=== PATIENT | female | born 1970 | race African-American/Black ===

== ENCOUNTER 2016-10-11 11:19 | Inpatient (IN) ==
[2016-10-11] MEDS ORDERED: hydrALAZINE 20 MG/1 ML VIAL IV STA (12:09)
--- NOTE | 2016-10-11 12:18 | CT Report ---
CT brain Indication: Right upper extremity tremors Comparison: None available Technique: Axial CT imaging of the brain is performed without contrast with 3 mm increments. Findings: No evidence of hemorrhage, mass mass effect midline shift or acute infarct seen. The brain parenchyma attenuation and differentiation appears within normal limits. The ventricles and cisterns are normal in caliber. No cranial or skull base abnormality is identified. Impression: No evidence of abnormality demonstrated. This CT exam was performed using one or more the following dose reduction techniques: Automated exposure control, adjustment of the MA and/or KV according to patient size, or use of iterative reconstruction technique. PROCEDURE INTERPRETED AT [facility] DEPARTMENT OF RADIOLOGY Final Report Signed by: Dr. Zafar Echevarria
[2016-10-11] MEDS ORDERED: hydrALAZINE 20 MG/1 ML VIAL ONE (12:27)
[2016-10-11 12:31] LABS: Basophils % 0.4 % (0.0-0.8); Eosinophils # 0.1 10*3/uL (0.0-0.87); Eosinophils % 1.4 % (0.00-10.9); Hematocrit 43.6 VOL% (35.7-47.0); Hemoglobin 14.4 GM/DL (12.0-16.0); Immature Granulocytes % 0.3 %; Immature Granulocytes Absolute 0.03 #; Lymphocytes # 3.9 10*3/uL (1.4-4.0); Lymphocytes % 37.5 % (21.3-54.2); Mean Corpuscular Hemoglobin 28 PG (27-34); Mean Corpuscular Volume 84.5 FL (87-102); Mean Platelet Volume 11.4 FL (9.6-12.0); Monocytes # 0.5 10*3/uL (0.11-0.8); Neutrophils # 5.7 10*3/uL (1.4-7.4); Neutrophils % 55.4 % (38.7-73.9); Platelet Count 288 T/CUMM (130-400); Red Blood Count 5.16 MC/CUMM (3.8-5.5); Red Cell Distribution Width 14.3 % (9.3-17.3); White Blood Count 10.3 T/CUMM (4-12)
[2016-10-11 13:02] LABS: Troponin I Only < 0.015 NG/ML (0.00-0.045)
[2016-10-11 13:11] LABS: Alanine Aminotransferase 23 U/L (13-56); Albumin 3.6 G/DL (3.4-5.0); Alkaline Phosphatase 116 U/L (45-117); Aspartate Amino Transferase 15 U/L (0-37); Bilirubin,Total < 0.39 MG/DL (0.2-1.0); Blood Urea Nitrogen 7 MG/DL (7-18); Calcium 8.9 MG/DL (8.5-10.1); Glucose 145 MG/DL (74-106); Magnesium 2.1 MG/DL (1.8-2.4); Potassium 3.3 MMOL/L (3.5-5.1); Sodium 136 MMOL/L (136-145); Total Protein 7.6 G/DL (6.4-8.3)
--- NOTE | 2016-10-11 13:11 | XRay Report ---
XR chest 1V portable Indication: Hypertension Comparison: None Technique: Single frontal view of the chest. Findings: Heart size within normal limits. No focal consolidation, pleural effusion, or pneumothorax. Visualized osseous and surrounding soft tissue structures demonstrate no acute abnormality. IMPRESSION: No acute cardiopulmonary process demonstrated. PROCEDURE INTERPRETED AT [facility] DEPARTMENT OF RADIOLOGY Final Report Signed by: Dr Shaan Godinez
[2016-10-11] MEDS ORDERED: niCARdipine 25 MG/10 ML VIAL IV ONE (13:48)
[2016-10-11 13:51] LABS: Apearance,Urine CLOUDY (Clear); Bacteria,Urine Occasional /HPF (Few); Bilirubin,Urine Negative (Negative); Blood, Urine Negative (Negative); Glucose,Urine (UA) Negative (Negative); Hyaline Casts,Urine 2 /LPF (0-3); Ketones,Urine Negative (Negative); Mucus,Urine Occasional /LPF (Occasional); Nitrite,Urine Negative (Negative); Protein,Urine Negative; RBC,Urine <1 /HPF (0-4); Squamous Epithelial Cell,Urine Few /HPF (0-10); Urine Color Yellow (Yellow); Urine Specific Gravity 1.009 (1.001-1.035); Urine Urobilinogen < 2.0 EU/DL (0.2-1.0); WBC,Urine 20 /HPF (0-6)
[2016-10-11] MEDS ORDERED: cefTRIAXone 1,000 MG in SODIUM CHLORIDE 0.9% 100 ML IV STA (13:55)
[2016-10-11] MEDS ORDERED: niCARdipine INJ 25 MG in SODIUM CHLORIDE 0.9% 240 ML IV SCH (14:00)
[2016-10-11] MEDS ORDERED: cefTRIAXone 1,000 MG VIAL ONE (14:01)
--- NOTE | 2016-10-11 14:10 | Emergency Department Note ---
IFernando Emily, am scribing for, and in the presence of, Hero Villanueva MD 12: 35. Kay Rueda Charles R, MD, personally performed the services described in this documentation, ascribed by Emma King in my presence, and it is both accurate and complete 410 . Arrival - Arrival Chief Complaint: Non-Specific Stated Complaint: recent procedure. Stuttering, shaking, mouth water ED Nursing Triage Note: SENT FROM DR GLYNN'S OFFICE, HAVING STUTTERED SPEACH AFTER INJECTION IN HER BACK Mode of Arrival: Wheelchair Limitations: No Limitations Source: Patient Time Seen by Provider: 10/11/16 11:38 - History of Present Illness HPI Narrative: Pt is a 45 y/o female who came to ED from Dr. Glynn's office for further evaluation of allergic reaction after procedure earlier today. Pt had injection to back, then noticing her hands started itching then mild swelling. She came back from bathroom, per family, when stating her hands and travelled to her feet and was given Benadryl to help with sxs. After that medication, she began shaking and stuttering, reporting she "doesn't feel myself." Pt denies BROWN, numbness, double vision, nervousness, and anxiety. Family notes pt usually vomits a few times after every injection to her back and can drink a "soda" that helps to resolve the emesis. Onset (ago): hour(s) Consistency: constant Severity: mild Severity scale (1-10): 3 Quality: fullness Allergies/Adverse Reactions: Allergies Allergy/AdvReac Type Severity Reaction Status Date / Time No Known Allergies Allergy Verified 10/11/16 11:27 Home Medications: Home Medications Medication Instructions Recorded Confirmed Type Albuterol Inhaler [Proventil 2 puff INH Q4HR PRN 10/11/16 10/11/16 History Inhaler] Amoxicillin 500 mg PO Q8H 10/11/16 10/11/16 History Atorvastatin [Lipitor] 40 mg PO DAILY 10/11/16 10/11/16 History Carvedilol [Coreg] 25 mg PO BID 10/11/16 10/11/16 History Diclofenac 1% Gel [Voltaren 1% Gel] 1 applic TOP BID 10/11/16 10/11/16 History Ergocalciferol (Vitamin D2) 50,000 unit PO MO 10/11/16 10/11/16 History [Vitamin D2] Hydrocodone/Acetaminophen [[place] 1 each PO QID 10/11/16 10/11/16 History 10-325 Tablet] Ibuprofen Tab [Motrin Tab] 800 mg PO BID 10/11/16 10/11/16 History Liraglutide [Victoza 2-Stas] 1.8 mg SUBCUT DAILY 10/11/16 10/11/16 History Losartan/Hydrochlorothiazide 1 each PO DAILY 10/11/16 10/11/16 History [Losartan-Hctz 100-12.5 mg Tab] Lovastatin 40 mg PO BEDTIME 10/11/16 10/11/16 History Ondansetron Tab [Zofran Tab] 4 mg PO Q8H PRN 10/11/16 10/11/16 History Potassium Chloride 10 meq PO DAILY 10/11/16 10/11/16 History Tizanidine HCl 4 mg PO BID 10/11/16 10/11/16 History Tramadol HCl [Tramadol Tab] 50 mg PO BID 10/11/16 10/11/16 History hydrALAZINE TAB [Apresoline Tab] 100 mg PO TID 10/11/16 10/11/16 History Review of System - Review of System 12 point system: reviewed and no additional remarkable complaints except as stated - Review of System Constitutional: Present: other (shaking). Absent: chills, fever, weakness Respiratory: Absent: cough, respiratory distress, wheezing Cardiovascular: Absent: chest pain, syncope Gastrointestinal: Absent: abdominal pain, nausea, vomiting Skin: Absent: rash Neurological: Absent: headache, numbness Allergic/Immunologic: Present: other (hands and feet itching and mild swelling) . Absent: facial swelling, urticaria, itchy eyes Medical,Surgical,& Family Hx - Medical History Neurology: No history of: Seizures - Family History Family History: noncontributory - Social History Smoking Status: Never smoker Marital Status: Single Lives With:: Alone Functional capacity: independent ambulation Exam Vital Signs: Vital Signs Temperature 98.1 F 10/11/16 11:21 Respiratory Rate 14 10/11/16 11:21 Blood Pressure 206/131 10/11/16 11:21 O2 Sat by Pulse Oximetry 100 10/11/16 11:21 - General General appearance: alert, in no apparent distress - Head Head exam: Present: atraumatic, normocephalic - Eye Eye exam: Present: PERRL, EOMI - ENT ENT exam: Present: mucous membranes moist. Absent: mucous membranes dry - Neck Neck exam: Present: full ROM. Absent: tenderness - Chest Chest inspection: Present: symmetric chest wall rise. Absent: tenderness - Respiratory Respiratory exam: Present: normal lung sounds bilaterally. Absent: respiratory distress - Cardiovascular Cardiovascular exam: Present: regular rate, normal rhythm, irregular rhythm - Extremities Exam Extremities exam: Present: full ROM. 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 Absent: motor sensory deficit - Psychiatric Psychiatric exam: Present: normal affect, normal mood. Absent: anxious - Skin Skin exam: Present: warm, dry Course - Consultations Consultation #1: Hospitalist will admit patient Time: 13:42 Results - Labs CBC & BMP: 10/11/16 12:16 10/11/16 12:16 Lab Results: I have reviewed the patients labs Labs: Laboratory Tests 10/11/16 12:16 MCV 84.5 L Laboratory Tests 10/11/16 12:16 Total Creatine Kinase 129 CK-MB (CK-2) < 1.0 Troponin I < 0.015 Laboratory Tests 10/11/16 10/11/16 11:47 12:16 Sodium 136 Potassium 3.3 L Chloride 103 Carbon Dioxide 25 Creatinine 0.80 Glucose 145 H Calculated Osmolality 272.0 L Globulin 4.0 H Albumin/Globulin Ratio 0.9 L Urine Color Yellow Urine Appearance Cloudy Urine pH 7.0 Urine Blood Negative Urine Nitrate Negative Urine Urobilinogen < 2.0 H Urine Leukocytes Moderate H Urine RBC <1 Urine WBC 20 Ur Squamous Epith Cells Few Urine Bacteria Occasional Hyaline Casts 2 Urine Mucus Occasional - Diagnostic Findings Procedure: Chest x-ray: report reviewed by me (No acute cardiopulmonary process demonstrated), CT: report reviewed by me (Head wo con: No evidence of abnormality demonstrated.) Critical Care Time Critical Care Time: Yes Total Critical Care Time: 60 Disposition Clinical Impression: UTI (urinary tract infection), Uncontrolled hypertension, Hypertensive urgency , Stuttering Case discussed with: patient, patient's family Disposition: Still a Patient Condition: Guarded Time of Disposition: 14:09
[2016-10-11] MEDS ORDERED: ONDANSETRON 4 MG/2 ML VIAL IV PRN (14:56)
[2016-10-11] MEDS ORDERED: ALBUTEROL 2.5 MG/3 ML NEB RESP TX PRN (14:56)
[2016-10-11] MEDS ORDERED: DEXTROSE 50% 25 GM/50 ML SYRINGE IV PRN (14:56)
[2016-10-11] MEDS ORDERED: GLUCAGON 1 MG VIAL IM PRN (14:56)
[2016-10-11] MEDS ORDERED: NON-FORMULARY MEDICATION (Albuterol Inhaler 2 PUFF) INH PRN (15:01)
[2016-10-11] MEDS ORDERED: POTASSIUM CHLORIDE 20 MEQ TABLET PO ONE (15:04)
--- NOTE | 2016-10-11 15:09 | Hospitalist History & Physical ---
Assessment and Plan (1) Hypertensive urgency Status: Acute Assessment and plan: The patient was noted to be grossly hypertensive at the time of ED presentation with a blood pressure noted at 206/131. The patient remained hypertensive despite the use of multiple antihypertensive agents. The patient was placed on a Cardene drip for blood pressure control however remains hypotensive. The patient will be admitted to the critical care setting and we will continue Cardene as previously ordered Current Visit: Yes (2) Stuttering Status: Acute Assessment and plan: The patient's speech is not well understood. I am not sure if this is related to the current state of hypertension or as a undesired effect of her medications. The family reported the onset immediately after receiving a pain injection this morning. CT head was essentially unremarkable. The patient will need need further diagnostic workup. We will consult neurology in order MRI for a.m. Current Visit: Yes (3) UTI (urinary tract infection) Status: Acute Assessment and plan: Urinalysis was essentially unremarkable for UTI. Urine culture has been obtained. We will start empiric antibiotic coverage and await culture sensitivity report. Current Visit: Yes Qualifiers: Urinary tract infection type: site unspecified History of Present Illness Chief complaint: Speech difficulty History of present illness: This is a pleasant 45-year-old female that presented to the ED at [facility] this morning for the further evaluation of speech difficulty and possible allergic reaction. The patient has a medical history significant for hypertension, hyperlipidemia, chronic back pain, diabetes mellitus, and asthma. The patient reported no significant surgical history at the time of encounter. The patient reported the onset of symptoms shortly after receiving an injection in her back at Dr. Jones's office. The patient reports that she has had injections in the past however she has never experience symptoms similar in nature before. At the time of presentation, the patient speech was not well understood. Her daughter and sister were present at bedside and served as historians. They reported that the patient had gone in for her routine injection and developed symptoms immediately after the injection. They reported that the patient was noted to have difficulty speaking and was shaking uncontrollably however the shaking was only isolated to her hands. They reported that the patient started to experience itching to both of her hands and was given Benadryl at Dr. Jones's office. The patient proceeded to go to the restroom and upon returning she was noted to be shaking uncontrollably. The family became alarmed and transported the patient to the ED for further evaluation. The patient was assessed at the time of ED presentation. The patient was noted to be grossly hypertensive with a blood pressure noted at 206/131. Multiple antihypertensive agents were given with minimal decrease in blood pressure noted. The patient was subsequently started on a Cardene infusion and remained hypertensive. Labs were obtained which were essentially remarkable for a potassium level noted at 3.3, glucose 145, and calculated osmolality 272.0. Urinalysis was essentially remarkable for moderate amount of leukocytes, urine white blood cell count 20, urine squamous epithelial cells few, occasional bacteria and urine mucus were noted and hyaline casts were noted at 2. CT head was essentially unremarkable for any acute intracranial processes. Chest x-ray reported no acute cardiopulmonary processes. After brief discussion with both Dr. Villanueva and Dr. Carr, the patient will be admitted to the hospitalist service for continuation of care. Due to the severity of the patient's current hypertensive state, the patient will be placed in the critical care setting. Home medications have been reviewed and reconciled. CODE STATUS discussed; the patient is a FULL CODE. Home Medications Medication Instructions Recorded Confirmed Type Albuterol Inhaler [Proventil 2 puff INH Q4HR PRN 10/11/16 10/11/16 History Inhaler] Amoxicillin 500 mg PO Q8H 10/11/16 10/11/16 History Atorvastatin [Lipitor] 40 mg PO DAILY 10/11/16 10/11/16 History Carvedilol [Coreg] 25 mg PO BID 10/11/16 10/11/16 History Diclofenac 1% Gel [Voltaren 1% Gel] 1 applic TOP BID 10/11/16 10/11/16 History Ergocalciferol (Vitamin D2) 50,000 unit PO MO 10/11/16 10/11/16 History [Vitamin D2] Hydrocodone/Acetaminophen [[place] 1 each PO QID 10/11/16 10/11/16 History 10-325 Tablet] Ibuprofen Tab [Motrin Tab] 800 mg PO BID 10/11/16 10/11/16 History Liraglutide [Victoza 2-Stas] 1.8 mg SUBCUT DAILY 10/11/16 10/11/16 History Losartan/Hydrochlorothiazide 1 each PO DAILY 10/11/16 10/11/16 History [Losartan-Hctz 100-12.5 mg Tab] Lovastatin 40 mg PO BEDTIME 10/11/16 10/11/16 History Ondansetron Tab [Zofran Tab] 4 mg PO Q8H PRN 10/11/16 10/11/16 History Potassium Chloride 10 meq PO DAILY 10/11/16 10/11/16 History Tizanidine HCl 4 mg PO BID 10/11/16 10/11/16 History Tramadol HCl [Tramadol Tab] 50 mg PO BID 10/11/16 10/11/16 History hydrALAZINE TAB [Apresoline Tab] 100 mg PO TID 10/11/16 10/11/16 History Allergies Allergy/AdvReac Type Severity Reaction Status Date / Time No Known Allergies Allergy Verified 10/11/16 11:27 Medical,Surgical,& Family Hx - Medical History Neurology: No history of: Seizures - Social History Smoking Status: Never smoker 12 point system: reviewed and no additional remarkable complaints except as stated Exam - Constitutional Vitals: Period Temp Pulse Resp BP Sys/[place] Pulse Ox Last 24 Hr 98.1 F 91 14-18 159-206/106-131 100 General appearance: morbidly obese - Head Head exam: Present: normal inspection, normocephalic, atraumatic - Eye Eye exam: Present: EOMI. Absent: conjunctival injection Pupils: Present: LAURENCE, normal accommodation - ENT ENT exam: Present: normal exam, normal external ear exam, normal oropharynx - Neck Neck exam: Present: normal inspection. Absent: lymphadenopathy, meningismus, thyromegaly - Respiratory Respiratory exam: Present: clear to auscultation bilaterally. Absent: rales, rhonchi, stridor, wheezes - Cardiovascular Cardiovascular exam: Present: regular rate and rhythm. Absent: carotid bruit, diastolic murmur, gallop, JVD, rubs, systolic murmur, tachycardia - GI/Abdominal GI/Abdominal exam: Present: normal bowel sounds, soft. Absent: firm, guarding, tenderness, rebound - Extremities Exam Extremities exam: Present: normal inspection, normal capillary refill, full ROM. Absent: edema - Back Exam Back exam: Present: normal inspection - Neurological Exam Neurological exam: Present: alert, oriented X3, CN II-XII intact, other ( Dysarthria noted) - Psychiatric Psychiatric exam: Present: normal affect, normal mood - Skin Skin exam: Present: normal color, warm, dry Results - Labs CBC & BMP: 10/11/16 12:16 10/11/16 12:16 Lab Results: I have reviewed the past 24 hour labs
--- NOTE | 2016-10-11 16:09 | Neurology Consult Note ---
History of Present Illness History of present illness: 45 years old right-handed -Martiniquais lady with past medical history significant for hyperlipidemia, hypertension, chronic back pain, diabetes, asthma admitted to the hospital from Dr. Jones's office with complaints of speech difficulties balance difficulty. Patient reported the onset of symptoms shortly after receiving epidural injection this morning. Patient has had some redness in the past but never had any problems before. Patient reported that she developed stuttering speech. No difficulty in comprehension. No slurred speech but only stuttering. Family also reported the patient was noted to have difficulty speaking and was shaking uncontrollably however the shaking was only isolated to her hands. She also developed some itching to both of her hands. She received Benadryl however it did not help. She was brought to the hospital for further evaluation. She underwent CT of the head which reveals no acute abnormalities. Patient at the present time reporting that she is almost 90% improved. She has very minimal stuttering. No walking difficulties anymore. No shaking reported. Home Medications Medication Instructions Recorded Confirmed Type Albuterol Inhaler [Proventil 2 puff INH Q4HR PRN 10/11/16 10/11/16 History Inhaler] Amoxicillin 500 mg PO Q8H 10/11/16 10/11/16 History Atorvastatin [Lipitor] 40 mg PO DAILY 10/11/16 10/11/16 History Carvedilol [Coreg] 25 mg PO BID 10/11/16 10/11/16 History Diclofenac 1% Gel [Voltaren 1% Gel] 1 applic TOP BID 10/11/16 10/11/16 History Ergocalciferol (Vitamin D2) 50,000 unit PO MO 10/11/16 10/11/16 History [Vitamin D2] Hydrocodone/Acetaminophen [[place] 1 each PO QID 10/11/16 10/11/16 History 10-325 Tablet] Ibuprofen Tab [Motrin Tab] 800 mg PO BID 10/11/16 10/11/16 History Liraglutide [Victoza 2-Stas] 1.8 mg SUBCUT DAILY 10/11/16 10/11/16 History Losartan/Hydrochlorothiazide 1 each PO DAILY 10/11/16 10/11/16 History [Losartan-Hctz 100-12.5 mg Tab] Lovastatin 40 mg PO BEDTIME 10/11/16 10/11/16 History Ondansetron Tab [Zofran Tab] 4 mg PO Q8H PRN 10/11/16 10/11/16 History Potassium Chloride 10 meq PO DAILY 10/11/16 10/11/16 History Tizanidine HCl 4 mg PO BID 10/11/16 10/11/16 History Tramadol HCl [Tramadol Tab] 50 mg PO BID 10/11/16 10/11/16 History hydrALAZINE TAB [Apresoline Tab] 100 mg PO TID 10/11/16 10/11/16 History Allergies Allergy/AdvReac Type Severity Reaction Status Date / Time No Known Allergies Allergy Verified 10/11/16 11:27 12 point system: reviewed and no additional remarkable complaints except as stated Medical,Surgical,& Family Hx - Medical History Cardio: History of: Hypertension Neurology: No history of: Seizures Respiratory: History of: Asthma, Pulmonary Embolism Musculoskeletal: History of: Back/Neck Problems - Family History Family History: Reports;: Family Cancer (mother, grandmother), Family Diabetes ( aunt, cousins), Family Hypertension (cousins, aunt) - Social History Smoking Status: Never smoker Frequency of Alcohol Use: None Type of Drug Use: None Exam - Constitutional Vitals: Period Temp Pulse Resp BP Sys/[place] Pulse Ox Last 24 Hr 98.1 F-98.1 F 89-102 14-20 140-206/86-131 94-100 Exam: GENERAL: Patient is in no acute distress. NECK: Neck is supple. There is no JVD. No carotid bruits present. No thyroid masses. CVS: First and second heart sounds are normal. There is no S3 present. Regular rate and rhythm. RESPIRATORY: Lungs are clear to auscultation without any rales or rhonchi. ABDOMEN: Soft and non-tender. Bowel sounds are present. There is no hepatosplenomegaly. EXT: There is no palpable edema. Peripheral pulses are present. Skin: No rashes Central Nervous system: General: Alert, awake and Oriented x 3 Speech: Fluent Comprehension: Intact and normal Facial expressions: Normal Cranial Nerves: CN1/Olfactory: Normal CN II/ Optic: Normal, Visual [place] unreliable CN III, and : LAURENCE & EOMI CN V: Normal & intact CN VII: face is symmetric CNVIII: Normal CN XI/X/XI/XII: Intact and Normal Motor: Bulk and Tone is normal. Strength in the right 5/5 Strength in the left 5/5 Sensory: Grossly intact for all the modalities of PP, LT and temp sense Reflexes: 1+ and symmetrical Cerebellar function: Normal finger to nose and heel to jhaveri testing. Toes: Equivocal Gait: Able to get up and walk without assistance. Results - Labs CBC & BMP: 10/11/16 12:16 10/11/16 12:16 Assessment and Plan (1) Difficulty with speech Status: Acute Assessment and plan: This is likely secondary to the reaction to the pain medicine or medications used in the procedure. No evidence of TIA, stroke, seizures. Patient has almost 90% improved. I would just continue watchful observation. Hold off to MRI at this time. Treat blood pressure aggressively Thank you for the consult Current Visit: Yes
[2016-10-11] MEDS: ASPIRIN 325 MG TABLET PO SCH (16:14)
[2016-10-11] MEDS: CARVEDILOL 25 MG TABLET PO SCH (16:14)
[2016-10-11] MEDS: INSULIN REGULAR 100 UNIT/ML SUBCUT SCH ×2 (17:19→20:33)
--- NOTE | 2016-10-11 17:55 | ECHO Report ---
Татьяна Munoz Exam Date: 10/11/2016 15:36 Referring Physician: Technologist: Brionna Finch RDCS Age: 45 Ht (in): 69 Wt (lb): 281 Gender: F Exam Location: [facility] Echo Indications: Hypertensive urgency, Stuttering, UTI, Essential (primary) hypertension, Speech difficulty, Asthma, Hyperlipidemia, unspecified, Diabetes BP: 159 / 106 HR: 102 Rhythm: Sinus Technical Quality: IMPRESSIONS Normal left ventricular cavity size. Mild concentric left ventricular hypertrophy. Left ventricular ejection fraction is estimated at 65 %. Grade 1 diastolic dysfunction. Mild mitral regurgitation. Focally thickened aortic valve. This could represent mass or aortic valve sclerosis. Consider OFELIA, if clinically indicated. MEASUREMENTS (Male / Female) Normal Values 2D ECHO LV Diastolic Diameter PLAX 3.6 cm 4.2 - 5.9 / 3.9 - 5.3 cm LV Systolic Diameter PLAX 2.1 cm LV Fractional Shortening PLAX 40.9 % IVS Diastolic Thickness 1.3 cm 0.6 - 1.0 / 0.6 - 0.9 cm LVPW Diastolic Thickness 1.4 cm 0.6 - 1.0 / 0.6 - 0.9 cm RV Internal Dim ED PLAX 3.3 cm Aortic Root Diameter 3.4 cm LA Systolic Diameter LX 3.7 cm 3.0 - 4.0 / 2.7 - 3.8 cm FINDINGS Left Ventricle Normal left ventricular cavity size. Mild concentric left ventricular hypertrophy. Left ventricular ejection fraction is estimated at 65 %. Grade 1 diastolic dysfunction. Right Ventricle The right ventricle is normal in size and function. Right Atrium The right atrium is normal in size. Left Atrium The left atrium is normal in size. Mitral Valve Morphologically normal mitral valve. Mild mitral regurgitation. Aortic Valve The aortic valve appears to be focally thickened, however, the resolution is too poor to assess whether it is a mass or sclerosis. No significant stenosis or insufficiency. Tricuspid Valve Morphologically normal tricuspid valve without significant stenosis or regurgitation. Sufficient data to estimate pulmonary artery systolic pressure. Pulmonic Valve The pulmonic valve is poorly visualized. Pericardium Normal pericardium without effusion. Aorta Normal ascending aorta dimension. Jai Ramirez (Electronically Signed) Final Date: 11 October 2016 17:53
[2016-10-11] MEDS ORDERED: PROMETHAZINE 25 MG TABLET PO PRN (20:42)
[2016-10-11] MEDS: AMOXICILLIN 500 MG CAPSULE PO SCH (21:13)
[2016-10-11] MEDS: DICLOFENAC 1% GEL 100 GM TUBE TOP SCH (21:13)
[2016-10-11] MEDS: diphenhydrAMINE CAP 25 MG CAPSULE PO PRN (21:14)
[2016-10-11] MEDS: ENOXAPARIN 40 MG/0.4 ML SYRINGE SUBCUT SCH (21:14)
[2016-10-11] MEDS: IBUPROFEN 800 MG TABLET PO SCH (21:14)
[2016-10-12] MEDS ORDERED: diphenhydrAMINE 50 MG/1 ML VIAL IV ONE (02:03)
[2016-10-12] MEDS ORDERED: FAMOTIDINE 20 MG/2 ML VIAL IV ONE (02:03)
[2016-10-12 05:05] LABS: Basophils % 0.4 % (0.0-0.8); Eosinophils # 0.1 10*3/uL (0.0-0.87); Eosinophils % 1.2 % (0.00-10.9); Hematocrit 41.2 VOL% (35.7-47.0); Hemoglobin 13.3 GM/DL (12.0-16.0); Immature Granulocytes % 0.2 %; Immature Granulocytes Absolute 0.02 #; Lymphocytes # 3.9 10*3/uL (1.4-4.0); Lymphocytes % 37.1 % (21.3-54.2); Mean Corpuscular HGB Conc 32.3 GM/DL (32-36); Mean Corpuscular Hemoglobin 27 PG (27-34); Mean Corpuscular Volume 84.6 FL (87-102); Mean Platelet Volume 11.8 FL (9.6-12.0); Monocytes # 0.6 10*3/uL (0.11-0.8); Monocytes % 5.3 % (1.7-12.7); Neutrophils # 5.8 10*3/uL (1.4-7.4); Neutrophils % 55.8 % (38.7-73.9); Platelet Count 277 T/CUMM (130-400); Red Blood Count 4.87 MC/CUMM (3.8-5.5); Red Cell Distribution Width 14.5 % (9.3-17.3); White Blood Count 10.4 T/CUMM (4-12)
[2016-10-12 05:33] LABS: Calcium 8.8 MG/DL (8.5-10.1); Osmolality,Calculated 271.8 MOS/KG (273-304); Potassium 4.2 MMOL/L (3.5-5.1)
[2016-10-12] MEDS ORDERED: FUROSEMIDE 40 MG/4 ML VIAL IV ONE (08:45)
[2016-10-12] MEDS: AMOXICILLIN 500 MG CAPSULE PO SCH ×3 (08:47→22:25)
[2016-10-12] MEDS: CARVEDILOL 25 MG TABLET PO SCH ×2 (08:47→19:09)
[2016-10-12] MEDS: ASPIRIN 325 MG TABLET PO SCH (08:48)
[2016-10-12] MEDS: hydroCHLOROthiazide 12.5 MG CAPSULE PO SCH (08:48)
[2016-10-12] MEDS: LOSARTAN 50 MG TABLET PO SCH (08:48)
[2016-10-12] MEDS: POTASSIUM CHLORIDE 10 MEQ TABLET PO SCH (08:49)
[2016-10-12] MEDS: ATORVASTATIN 40 MG TABLET PO SCH (08:49)
[2016-10-12] MEDS: IBUPROFEN 800 MG TABLET PO SCH ×2 (08:49→22:26)
[2016-10-12] MEDS: DICLOFENAC 1% GEL 100 GM TUBE TOP SCH ×2 (08:51→22:35)
[2016-10-12] MEDS ORDERED: PANTOPRAZOLE 40 MG VIAL IV SCH (09:00)
[2016-10-12] MEDS ORDERED: NON-FORMULARY MEDICATION (Liraglutide [Victoza 2-Pak] 1.8 MG) SUBCUT SCH (09:00)
[2016-10-12] MEDS: INSULIN REGULAR 100 UNIT/ML SUBCUT SCH (09:32)
[2016-10-12] MEDS: PANTOPRAZOLE 40 MG TABLET PO SCH (09:33)
[2016-10-12] MEDS: diphenhydrAMINE CAP 25 MG CAPSULE PO PRN ×2 (09:49→22:30)
--- NOTE | 2016-10-12 13:04 | Hospitalist Progress Note ---
Assessment and Plan (1) Uncontrolled hypertension Status: Acute Assessment and plan: 1)uncontrolled HTN- stable on oral meds alone this morning. 2)neuro changes after IDALIA- resolved. 3)itching- benadryl prn. no rash. she may have had a reaction to zofran last night, but she takes it po at home. Current Visit: Yes (2) Hypertensive urgency Status: Acute Current Visit: Yes Hospitalist: Subjective Interval history: Ms Munoz's neuro changes have resolved. Her stuttering is resolved. The MRI was deferred by Dr Gómez and I have cancelled it today. Her troponins were negative. Her BP is under improved control. Exam - Constitutional Vitals: Period Temp Pulse Resp BP Sys/[place] Pulse Ox Last 24 Hr 96.6 F-98.2 F 51-102 11-22 112-182/69-120 89-98 General appearance: no acute distress, morbidly obese - Head Head exam: Present: normocephalic, atraumatic - Eye Eye exam: Present: EOMI. Absent: scleral icterus - Respiratory Respiratory exam: Present: clear to auscultation bilaterally - Cardiovascular Cardiovascular exam: Present: regular rate and rhythm - GI/Abdominal GI/Abdominal exam: Present: normal bowel sounds, soft. Absent: tenderness - Extremities Exam Extremities exam: Absent: edema - Neurological Exam Neurological exam: Present: alert, oriented X3, CN II-XII intact. Absent: motor sensory deficit - Skin Skin exam: Present: warm, dry Results - Labs CBC & BMP: 10/12/16 04:49 10/12/16 04:49 Lab Results: I have reviewed the past 24 hour labs
--- NOTE | 2016-10-12 14:55 | Neurology Progress Note ---
Neurology - PN : Subjective Interval history: Patient seems to be doing much better. No other further problems reported. She is able to get up and walk. speech is fluent Exam (Progress Note) - Constitutional Vitals: Period Temp Pulse Resp BP Sys/Castrejon Pulse Ox Last 24 Hr 96.6 F-98.2 F 51-102 11-22 108-171/62-107 89-98 Exam: GENERAL: Patient is in no acute distress. NECK: Neck is supple. There is no JVD. No carotid bruits present. No thyroid masses. CVS: First and second heart sounds are normal. There is no S3 present. Regular rate and rhythm. RESPIRATORY: Lungs are clear to auscultation without any rales or rhonchi. ABDOMEN: Soft and non-tender. Bowel sounds are present. There is no hepatosplenomegaly. EXT: There is no palpable edema. Peripheral pulses are present. Skin: No rashes Central Nervous system: General: Alert, awake and Oriented x 3 Speech: Fluent Comprehension: Intact and normal Facial expressions: Normal Cranial Nerves: CN1/Olfactory: Normal CN II/ Optic: Normal, Visual [place] unreliable CN III, and : LAURENCE & EOMI CN V: Normal & intact CN VII: face is symmetric CNVIII: Normal CN XI/X/XI/XII: Intact and Normal Motor: Bulk and Tone is normal. Strength in the right 5/5 Strength in the left 5/5 Sensory: Grossly intact for all the modalities of PP, LT and temp sense Reflexes: 1+ and symmetrical Cerebellar function: Normal finger to nose and heel to jhaveri testing. Toes: Equivocal Gait: A normal Results - Labs CBC & BMP: 10/12/16 04:49 10/12/16 04:49 Assessment and Plan (1) Difficulty with speech Status: Acute Assessment and plan: This is likely secondary to the reaction to the pain medicine or medications used in the procedure. No evidence of TIA, stroke, seizures. Patient has completely recovered. No further recommendations from neuro standpoint. No imaging studies needed Okay to go home from neuro standpoint Sign off please call as needed Current Visit: Yes
[2016-10-12] MEDS: ENOXAPARIN 40 MG/0.4 ML SYRINGE SUBCUT SCH (22:25)
[2016-10-13] MEDS ORDERED: hydrOXYzine HCL 25 MG TABLET PO ONE (01:08)
[2016-10-13 06:06] LABS: Calcium 8.7 MG/DL (8.5-10.1); Osmolality,Calculated 273.8 MOS/KG (273-304); Potassium 4.4 MMOL/L (3.5-5.1)
--- NOTE | 2016-10-13 07:14 | Discharge Summary ---
<Rusty Oshea - Last Filed: 10/13/16 07:10> Hospital Course - Hospital Course Hospital Course: This is a pleasant 45-year-old female that presented to the ED at [facility] on the morning of October 11, 2016 for the further evaluation of speech difficulty and possible allergic reaction. The patient has a medical history significant for hypertension, hyperlipidemia, chronic back pain, diabetes mellitus, and asthma. The patient reported no significant surgical history at the time of encounter. The patient reported the onset of symptoms shortly after receiving an injection in her back at Dr. Jones's office. The patient reported that she has had injections in the past however she has never experience symptoms similar in nature before. At the time of presentation, the patient speech was not well understood. Her daughter and sister were present at bedside and served as historians. They reported that the patient had gone in for her routine injection and developed symptoms immediately after the injection. They reported that the patient was noted to have difficulty speaking and was shaking uncontrollably however the shaking was only isolated to her hands. They reported that the patient started to experience itching to both of her hands and was given Benadryl at Dr. Jones's office. The patient proceeded to go to the restroom and upon returning she was noted to be shaking uncontrollably. The family became alarmed and transported the patient to the ED for further evaluation. The patient was assessed at the time of ED presentation. The patient was noted to be grossly hypertensive with a blood pressure noted at 206/131. Multiple antihypertensive agents were given with minimal decrease in blood pressure noted. The patient was subsequently started on a Cardene infusion and remained hypertensive. Labs were obtained which were essentially remarkable for a potassium level noted at 3.3, glucose 145, and calculated osmolality 272.0. Urinalysis was essentially remarkable for moderate amount of leukocytes, urine white blood cell count 20, urine squamous epithelial cells few, occasional bacteria and urine mucus were noted and hyaline casts were noted at 2. CT head was essentially unremarkable for any acute intracranial processes. Chest x-ray reported no acute cardiopulmonary processes. The patient was subsequently admitted to the hospitalist service for continuation of care. The patient was placed in the critical care setting due to the severity of the patient's blood pressure. The patient was started on multiple intravenous antihypertensive agents and the patient's blood pressures slowly improved. A full stroke workup was conducted. Echocardiogram on October 11, 2016 reported mild concentric left ventricular hypertrophy, left ventricular ejection fraction estimated at 65%, grade 1 diastolic dysfunction, mild mitral regurgitation, and focally thickened aortic valve. A neurology consultation was requested and recommendations were given. The patient's condition slowly improved. The patient's condition is stable.Vitals are stable. She has not experienced any significant overnight events. Patient desires to do an MRI prior to discharge though this is not recommended by Neuro.. Today, we feel that she is indeed appropriate for discharge to follow-up with her primary care physician as indicated. Diagnosis - Discharge Diagnosis (1) Hypertensive urgency Status: Acute (2) Stuttering Status: Acute (3) UTI (urinary tract infection) Status: Acute Discharge Plan - Discharge Data Disposition: Disch To Home/Self Care - Discharge Medications New Aspirin Tab 325 mg PO DAILY #30 tablet Pantoprazole Tab [Protonix Tab] 40 mg PO DAILY #30 tablet Amoxicillin Cap/Tab 500 mg PO TID #14 capsule Continue Atorvastatin [Lipitor] 40 mg PO DAILY Carvedilol [Coreg] 25 mg PO BID Diclofenac 1% Gel [Voltaren 1% Gel] 1 applic TOP BID Ergocalciferol (Vitamin D2) [Vitamin D2] 50,000 unit PO MO Liraglutide [Victoza 2-Stas] 1.8 mg SUBCUT DAILY Ondansetron Tab [Zofran Tab] 4 mg PO Q8H PRN PRN Reason: Nausea Tizanidine HCl 4 mg PO BID Tramadol HCl [Tramadol Tab] 50 mg PO BID Hydrocodone/Acetaminophen [[place] 10-325 Tablet] 1 each PO QID #20 Albuterol Inhaler [Proventil Inhaler] 2 puff INH Q4HR PRN PRN Reason: Shortness Of Breath hydrALAZINE TAB [Apresoline Tab] 100 mg PO TID Losartan/Hydrochlorothiazide [Losartan-Hctz 100-12.5 mg Tab] 1 each PO DAILY Discontinued Ibuprofen Tab [Motrin Tab] 800 mg PO BID Lovastatin 40 mg PO BEDTIME Amoxicillin 500 mg PO Q8H Potassium Chloride 10 meq PO DAILY - Follow Up or Referral - Forms/Instructions Exam - Constitutional Vitals: Period Temp Pulse Resp BP Sys/Castrejon Pulse Ox Last 24 Hr 97.3 F-98.6 F 56-89 11-22 83-138/51-95 89-99 Discharge Results Procedures and tests throughout hospitalization: Pending Orders 10/11/16 Urine Culture Routine 10/11/16 15:20 MRSA Surveillence, Inf Control Routine 10/13/16 09:08 MR angio neck wo/w con Routine MR head/brain w and wo con Routine Labs on day of discharge: Labs from last 24 hours 10/13/16 10/12/16 10/12/16 05:25 15:42 11:03 Sodium 137 Potassium 4.4 Chloride 103 Carbon Dioxide 26 Anion Gap 12.4 BUN 16 Creatinine 1.20 H GFR Calculation 87 BUN/Creatinine Ratio 13.00 Glucose 101 POC Glucose 102 97 Calculated Osmolality 273.8 Calcium 8.7 Preliminary micro results at discharge 10/11/16 Unknown Urine Culture - Preliminary Urine,Clean Catch No Growth at 24 hours. 10/11/16 15:20 MRSA Surveillance Culture - Preliminary Nares - Both Nares (Mrsa screen) No MRSA isolated. DS: Provider Date of admission: 10/11/16 13:55 Primary care physician: Pepper Schultz MD Attending physician on admission: Josse Watson MD Consults: 10/11/16 14:59 Consult to Physician [CONS] Routine Comment: stroke symptoms Consulting Provider: Seun Gómez Discharging clinician: Rusty Oshea CNP <Rhea Rahman - Last Filed: 10/13/16 09:43> Hospital Course - Time spent with patient Time with patient DS: Greater than 30 minutes (time spent greater than 30mins) Diagnosis - Discharge Diagnosis (1) Difficulty with speech Status: Acute (2) Hypertensive urgency Status: Acute Discharge Plan - Discharge Data Condition at Discharge: Stable Discharge Diet: heart healthy Activity: resume usual activities as tolerated - Forms/Instructions Additional Discharge Instructions: Follow with PCP in 1week Exam - Constitutional General appearance: no acute distress, morbidly obese - Head Head exam: Present: normal inspection - Respiratory Respiratory exam: Present: clear to auscultation bilaterally - Cardiovascular Cardiovascular exam: Present: regular rate and rhythm - GI/Abdominal GI/Abdominal exam: Present: normal bowel sounds - Extremities Exam Extremities exam: Present: normal inspection - Neurological Exam Neurological exam: Present: alert, oriented X3
[2016-10-13] MEDS: hydroCHLOROthiazide 12.5 MG CAPSULE PO SCH (09:08)
[2016-10-13] MEDS: LOSARTAN 50 MG TABLET PO SCH (09:08)
[2016-10-13] MEDS: AMOXICILLIN 500 MG CAPSULE PO SCH (09:08)
[2016-10-13] MEDS: ATORVASTATIN 40 MG TABLET PO SCH (09:08)
[2016-10-13] MEDS: ASPIRIN 325 MG TABLET PO SCH (09:09)
[2016-10-13] MEDS: PANTOPRAZOLE 40 MG TABLET PO SCH (09:09)
[2016-10-13] MEDS: CARVEDILOL 25 MG TABLET PO SCH (09:09)
[2016-10-13] MEDS: IBUPROFEN 800 MG TABLET PO SCH (09:09)
[2016-10-13] MEDS: POTASSIUM CHLORIDE 10 MEQ TABLET PO SCH (09:09)
[2016-10-13] MEDS: DICLOFENAC 1% GEL 100 GM TUBE TOP SCH (09:10)
[2016-10-13] MEDS: diphenhydrAMINE CAP 25 MG CAPSULE PO PRN (09:12)
[2016-10-13 12:28] VITALS: BP 173/78
[2016-10-17] MEDS ORDERED: ERGOCALCIFEROL 50,000 UNIT CAPSULE PO SCH (09:00)
== END 2016-10-13 13:48 | disposition home or self-care (01) | DRG 199 ==
LOC: N.ED 11:19 → N.EDINP 13:55 → SUATTDRO 13:55 → N.EDINP 15:16 → N.CC 15:25 → N.2E 10-13 00:51
PROVIDERS: ADMIT Internal Medicine; ATTEND Internal Medicine